=== PATIENT | female | born 1990 | race Hispanic/Latino ===

== ENCOUNTER 2018-11-22 00:29 | Emergency (ER) | payer OTHER, SELFPAY ==
--- OUTSIDE RECORDS SUMMARY | 2018-11-22 00:30 | XMS REPORT ---
:1990 Author Organization [facility] Address [address] [place] [address] Dr. Esquivel [address] [place] [id number] Care Team Providers Name Role Phone Unavailable Unavailable Unavailable Problems This patient has no known problems. Allergies, Adverse Reactions, Alerts This patient has no known allergies or adverse reactions. Medications This patient has no known medications.
--- NOTE | 2018-11-22 02:46 | EDPHYS ---
Physician Documentation [facility] Name: Bia Alvarez Age: 28 yrs Sex: Female : 1990 Arrival Date: 11/22/2018 Time: 00:30 Bed 11 Private MD: ED Physician Artem Austin HPI: 11/22 08:46 This 28 yrs old Female presents to ER via Ambulatory with complaints of Rash, wa Swollen Feet. 08:46 The patient's rash thought to be caused by an unknown cause. The rash is located on the wa back of both hands and lower lateral R leg. The rash can be described as erythematous. Onset: The symptoms/episode began/occurred just prior to arrival. Associated signs and symptoms: Pertinent positives: Pain burning, Pertinent negatives: difficulty breathing, itching, swelling of lips, swelling of throat, swelling of tongue, wheezing. Severity of symptoms: At their worst the symptoms were moderate in the emergency department the symptoms are unchanged. Treatment given at home: none. The patient has not experienced similar symptoms in the past. The patient has not recently seen a physician. 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 - Social history:: Smoking status: Patient/guardian denies using tobacco. - Ebola Screening: : Patient negative for fever greater than or equal to 101.5 degrees Fahrenheit, and additional compatible Ebola Virus Disease symptoms. - Family history:: not pertinent. - Hospitalizations: : No recent hospitalization is reported. ROS: 08:48 Constitutional: Negative for fever, chills, and weight loss, Eyes: Negative for injury, wa pain, redness, and discharge, ENT: Negative for injury, pain, and discharge, Neck: Negative for injury, pain, and swelling, Cardiovascular: Negative for chest pain, palpitations, and edema, Respiratory: Negative for shortness of breath, cough, wheezing, and pleuritic chest pain, Abdomen/GI: Negative for abdominal pain, nausea, vomiting, diarrhea, and constipation, Back: Negative for injury and pain, : Negative for injury, bleeding, discharge, and swelling, MS/Extremity: Negative for injury and deformity, Neuro: Negative for headache, weakness, numbness, tingling, and seizure, Psych: Negative for depression, anxiety, suicide ideation, homicidal ideation, and hallucinations. 08:48 Skin: Positive for erythema, rash, of the right hand and left hand, R lower leg. Exam: 08:49 Constitutional: This is a well developed, well nourished patient who is awake, alert, wa and in no acute distress. Head/Face: Normocephalic, atraumatic. Eyes: Pupils equal round and reactive to light, extra-ocular motions intact. Lids and lashes normal. Conjunctiva and sclera are non-icteric and not injected. Cornea within normal limits. Periorbital areas with no swelling, redness, or edema. ENT: Nares patent. No nasal discharge, no septal abnormalities noted. Tympanic membranes are normal and external auditory canals are clear. Oropharynx with no redness, swelling, or masses, exudates, or evidence of obstruction, uvula midline. Mucous membranes moist. Neck: Trachea midline, no thyromegaly or masses palpated, and no cervical lymphadenopathy. Supple, full range of motion without nuchal rigidity, or vertebral point tenderness. No Meningismus. Chest/axilla: Normal chest wall appearance and motion. Nontender with no deformity. No lesions are appreciated. Cardiovascular: Regular rate and rhythm with a normal S1 and S2. No gallops, murmurs, or rubs. Normal PMI, no JVD. No pulse deficits. Respiratory: Lungs have equal breath sounds bilaterally, clear to auscultation and percussion. No rales, rhonchi or wheezes noted. No increased work of breathing, no retractions or nasal flaring. Abdomen/GI: Soft, non-tender, with normal bowel sounds. No distension or tympany. No guarding or rebound. No evidence of tenderness throughout. Back: No spinal tenderness. No costovertebral tenderness. Full range of motion. Neuro: Awake and alert, GCS 15, oriented to person, place, time, and situation. Cranial nerves II-XII grossly intact. Motor strength 5/5 in all extremities. Sensory grossly intact. Cerebellar exam normal. Normal gait. 08:49 Musculoskeletal/extremity: Extremities: grossly normal except: noted in the right hand and left hand, R lateral lower leg: erythema, pain. 08:51 Skin: cellulitis, on the right leg and left hand and right hand. ne Vital Signs: 00:40 BP 107 / 89; Pulse 66; Resp 16 S; Temp 97.3(TE); Pulse Ox 100% on R/A; Weight 105.23 kg jd3 (R); Height 5 ft. 3 in. (160.02 cm) (R); Pain 0/10; 00:40 Body Mass Index 41.10 (105.23 kg, 160.02 cm) jd3 MDM: 01:57 Patient medically screened. ne 08:50 Differential diagnosis: allergic reaction, cellulitis?. Data reviewed: vital signs, ne nurses notes. 08:50 Response to treatment: the patient's symptoms have mildly improved after treatment. ED wa course: received prednisone and first dose of keflex in ED. Administered Medications: 03:11 Drug: predniSONE 60 mg Route: PO; fu 03:12 Follow up: Response: No adverse reaction 03:21 CANCELLED (Pt already left, will fill script): KeFLEX 500 mg PO once fc Disposition: 11/22/18 02:46 Discharged to Home. Impression: Cellulitis of the Hands and Right Leg. - Condition is Stable. - Discharge Instructions: Cellulitis, Adult, [id number]. - Prescriptions for Keflex 500 mg Oral Capsule - take 1 capsule by ORAL route every 8 hours for 7 days; 21 capsule. - Medication Reconciliation Form, Thank You Letter, Antibiotic Education, Prescription Opioid Use form. - Follow up: Private Physician; When: 2 - 3 days; Reason: Recheck today's complaints. - Problem is new. - Symptoms are unchanged. - Notes: taeke medication as prescribed. follow up with your doctor within 2 days for further evaluation Signatures: Artem Austin MD MD wa Davies, Jonathon, RN RN jJaime Yao RN RN fu Chretien, Felicia RN fc Corrections: (The following items were deleted from the chart) 03:21 03:15 KeFLEX 500 mg PO once ordered. ne fc 03:24 02:46 11/22/2018 02:46 Discharged to Home. Impression: Cellulitis of the Hands and fu Right Leg. Condition is Stable. Forms are Medication Reconciliation Form, Thank You Letter, Antibiotic Education, Prescription Opioid Use. Follow up: Private Physician; When: 2 - 3 days; Reason: Recheck today's complaints. Problem is new. Symptoms are unchanged. wa
--- NOTE | 2018-11-22 02:46 | ER ---
Nurse's Notes [facility] Name: Bia Alvarez Age: 28 yrs Sex: Female : 1990 Arrival Date: 11/22/2018 Time: 00:30 Bed 11 Private MD: Diagnosis: Cellulitis of the Hands and Right Leg Presentation: 11/22 00:37 Presenting complaint: Patient states: "I took a shower and I noticed a rash on my right jd3 leg and my feet are swelling.'. Transition of care: patient was not received from another setting of care. Onset of symptoms was November 22, 2018. Risk Assessment: Do you want to hurt yourself or someone else? Patient reports no desire to harm self or others. Initial Sepsis Screen: Does the patient meet any 2 criteria? No. Patient's initial sepsis screen is negative. Does the patient have a suspected source of infection? No. Patient's initial sepsis screen is negative. Care prior to arrival: None. 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 - Social history:: Smoking status: Patient/guardian denies using tobacco. - Ebola Screening: : Patient negative for fever greater than or equal to 101.5 degrees Fahrenheit, and additional compatible Ebola Virus Disease symptoms. - Family history:: not pertinent. - Hospitalizations: : No recent hospitalization is reported. Screenin:00 Abuse screen: Denies threats or abuse. fu Assessment: 01:40 General: Appears uncomfortable, obese, Behavior is calm, cooperative, appropriate for fu age, Denies fever, chills. Pain: Complains of pain in right hand and left hand Pain does not radiate. Pain currently is 5 out of 10 on a pain scale. Neuro: Level of Consciousness is awake, alert, obeys commands. Cardiovascular: Capillary refill < 3 seconds. Cardiovascular: Respiratory: Breath sounds are clear bilaterally. : Reports blood in urine, patient had delivery by a week ago. Derm: Skin is redness noted to both hands, right hicks, and neck. edema to both legs and feet noted. Musculoskeletal: No deficits noted. Vital Signs: 00:40 BP 107 / 89; Pulse 66; Resp 16 S; Temp 97.3(TE); Pulse Ox 100% on R/A; Weight 105.23 kg jd3 (R); Height 5 ft. 3 in. (160.02 cm) (R); Pain 0/10; 00:40 Body Mass Index 41.10 (105.23 kg, 160.02 cm) jd3 ED Course: 00:30 Patient arrived in ED. am2 00:38 Triage completed. jd3 00:41 Arm band placed on Patient notified of wait time. jd3 01:36 Jaime Taylor, RN is Primary Nurse. fu 01:57 Artem Austin MD is Attending Physician. wa 02:00 Patient has correct armband on for positive identification. Side rails up X 1. fu 02:24 ED physician talking to the patient. fu 03:00 No provider procedures requiring assistance completed. Patient did not have IV access fu during this emergency room visit. Administered Medications: 03:11 Drug: predniSONE 60 mg Route: PO; fu 03:12 Follow up: Response: No adverse reaction fu 03:21 CANCELLED (Pt already left, will fill script): KeFLEX 500 mg PO once fc Outcome: 02:46 Discharge ordered by . wa 03:13 Condition: stable fu 03:13 Discharge instructions given to patient, Instructed on discharge instructions, follow up and referral plans. Demonstrated understanding of instructions, follow-up care, medications, Prescriptions given X 1. 03:24 Patient left the ED. fu Signatures: Jessica Lopez am2 Artem Austin MD MD nv Roger Lawrenec RN RN j Jaime Taylor RN RN Justine Zimmerman RN
[2018-11-22] MEDS ORDERED: predniSONE 20 MG TAB ONE (03:21)
[2018-11-22] MEDS ORDERED: CEPHALEXIN 250 MG CAP ONE (03:31)
== END 2018-11-22 03:24 | disposition home or self-care (01) ==
LOC: ER 00:29
DX: L03.114 Cellulitis of left upper limb (principal); L03.113 Cellulitis of right upper limb; L03.115 Cellulitis of right lower limb
CPT/HCPCS: 99283; J7512

== ENCOUNTER 2018-12-10 17:29 | Emergency (ER) | payer OTHER ==
--- OUTSIDE RECORDS SUMMARY | 2018-12-10 17:30 | XMS REPORT ---
:1990 [facility] Address [address] [place] [address] Dr. Esquivel [address] [place] [address] Care Team Providers Name Role Phone Unavailable Unavailable Unavailable Problems This patient has no known problems. Allergies, Adverse Reactions, Alerts This patient has no known allergies or adverse reactions. Medications This patient has no known medications.
[2018-12-10] MEDS ORDERED: LIDOCAINE 1% MPF 5 ML VIAL ONE (18:23)
--- NOTE | 2018-12-10 18:53 | EDPHYS ---
Physician Documentation [facility] Name: Bia Alvarez Age: 28 yrs Sex: Female : 1990 Arrival Date: 12/10/2018 Time: 17:30 Bed 23 Private MD: ED Physician Artem Austin HPI: 12/10 18:45 This 28 yrs old Female presents to ER via Ambulatory with complaints of I have wa a bump on my incision. 18:45 The patient presents with an abscess of the suprapubic area. Description: The affected wa area is small, localized, erythematous, fluctuant, swollen. Onset: The symptoms/episode began/occurred 2 day(s) ago. Possible cause(s): unknown. Associated signs and symptoms: The patient has no apparent associated signs or symptoms. Modifying factors: the symptoms are alleviated by nothing, the symptoms are aggravated by pressure, squeezing the lesion and expressing the contents, touching. Severity of symptoms: At their worst the symptoms were moderate, in the emergency department the symptoms are unchanged. The patient has not experienced similar symptoms in the past. The patient has not recently seen a physician. had a 1 month ago. believes the bump may be on the location of the scar. 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 - Social history:: Smoking status: Patient/guardian denies using tobacco. - Ebola Screening: : No symptoms or risks identified at this time. - Family history:: not pertinent. - Hospitalizations: : No recent hospitalization is reported. ROS: 18:47 Constitutional: Negative for fever, chills, and weight loss, Eyes: Negative for injury, wa pain, redness, and discharge, ENT: Negative for injury, pain, and discharge, Neck: Negative for injury, pain, and swelling, Cardiovascular: Negative for chest pain, palpitations, and edema, Respiratory: Negative for shortness of breath, cough, wheezing, and pleuritic chest pain, Abdomen/GI: Negative for abdominal pain, nausea, vomiting, diarrhea, and constipation, Back: Negative for injury and pain, : Negative for injury, bleeding, discharge, and swelling, MS/Extremity: Negative for injury and deformity, Neuro: Negative for headache, weakness, numbness, tingling, and seizure, Psych: Negative for depression, anxiety, suicide ideation, homicidal ideation, and hallucinations. 18:47 Skin: Positive for abscess, cellulitis, of the suprapubic area. 18:47 All other systems are negative. 18:55 Skin: Negative for hematoma. wa Exam: 18:47 Constitutional: This is a well developed, well nourished patient who is awake, alert, wa and in no acute distress. Head/Face: Normocephalic, atraumatic. Eyes: Pupils equal round and reactive to light, extra-ocular motions intact. Lids and lashes normal. Conjunctiva and sclera are non-icteric and not injected. Cornea within normal limits. Periorbital areas with no swelling, redness, or edema. ENT: Nares patent. No nasal discharge, no septal abnormalities noted. Tympanic membranes are normal and external auditory canals are clear. Oropharynx with no redness, swelling, or masses, exudates, or evidence of obstruction, uvula midline. Mucous membranes moist. Neck: Trachea midline, no thyromegaly or masses palpated, and no cervical lymphadenopathy. Supple, full range of motion without nuchal rigidity, or vertebral point tenderness. No Meningismus. Chest/axilla: Normal chest wall appearance and motion. Nontender with no deformity. No lesions are appreciated. Cardiovascular: Regular rate and rhythm with a normal S1 and S2. No gallops, murmurs, or rubs. Normal PMI, no JVD. No pulse deficits. Respiratory: Lungs have equal breath sounds bilaterally, clear to auscultation and percussion. No rales, rhonchi or wheezes noted. No increased work of breathing, no retractions or nasal flaring. Abdomen/GI: Soft, non-tender, with normal bowel sounds. No distension or tympany. No guarding or rebound. No evidence of tenderness throughout. Back: No spinal tenderness. No costovertebral tenderness. Full range of motion. MS/ Extremity: Pulses equal, no cyanosis. Neurovascular intact. Full, normal range of motion. Neuro: Awake and alert, GCS 15, oriented to person, place, time, and situation. Cranial nerves II-XII grossly intact. Motor strength 5/5 in all extremities. Sensory grossly intact. Cerebellar exam normal. Normal gait. Psych: Awake, alert, with orientation to person, place and time. Behavior, mood, and affect are within normal limits. 18:56 Skin: abscess, that is small, approximately 2 cm(s), of the suprapubic area. nj Vital Signs: 17:32 BP 109 / 70; Pulse 83; Resp 16 S; Pulse Ox 100% on R/A; Weight 100.24 kg (R); Height 5 aa5 ft. 3 in. (160.02 cm) (R); Pain 4/10; 17:33 Temp 98.3(O); bd 17:32 Body Mass Index 39.15 (100.24 kg, 160.02 cm) aa5 Procedures: 18:50 I \T\ D: Incision and drainage was performed for an abscess of the suprapubic area wa Prepped with Betadine, Anesthetized with 2 ml's 1% Lidocaine. Incised with #11 blade. Drained small amount purulent fluid. Dressing: sterile 4x4 gauze, the patient tolerated the procedure well. MDM: 17:36 Patient medically screened. wa 18:50 Differential diagnosis: abscess, cellulitis. Data reviewed: vital signs, nurses notes. nj Administered Medications: No medications were administered Disposition: 12/10/18 18:52 Discharged to Home. Impression: Acute cutaneous abscess (pubis). - Condition is Stable. - Discharge Instructions: Skin Abscess, [id number]. - Prescriptions for Keflex 500 mg Oral Capsule - take 1 capsule by ORAL route every 8 hours for 7 days; 21 capsule. Bactrim DS 800- 160 mg Oral Tablet - take 1 tablet by ORAL route every 12 hours for 7 days; 14 tablet. - Medication Reconciliation Form, Thank You Letter, Antibiotic Education, Prescription Opioid Use form. - Follow up: Private Physician; When: 2 - 3 days; Reason: Recheck today's complaints. - Problem is new. - Symptoms have improved. - Notes: take antibiotics as prescribed. follow up with your doctor for wound check within 48 hours Signatures: Renee Moses RN RN aa5 Artem Austin MD MD nj Haja Strong RN RN rv Corrections: (The following items were deleted from the chart) 19:07 18:52 12/10/2018 18:52 Discharged to Home. Impression: Acute cutaneous abscess (pubis). rv Condition is Stable. Forms are Medication Reconciliation Form, Thank You Letter, Antibiotic Education, Prescription Opioid Use. Follow up: Private Physician; When: 2 - 3 days; Reason: Recheck today's complaints. Problem is new. Symptoms have improved. wa
--- NOTE | 2018-12-10 18:53 | ER ---
Nurse's Notes [facility] Name: Bia Alvarez Age: 28 yrs Sex: Female : 1990 Arrival Date: 12/10/2018 Time: 17:30 Bed 23 Private MD: Diagnosis: Acute cutaneous abscess (pubis) Presentation: 12/10 17:30 Presenting complaint: Patient states: "I have a bump under my and I think aa5 it's an abscess". Pt reports having on 11/13/18. 17:30 Transition of care: patient was not received from another setting of care. Onset of aa5 symptoms was November 2018. Risk Assessment: Do you want to hurt yourself or someone else? Patient reports no desire to harm self or others. Initial Sepsis Screen: Does the patient meet any 2 criteria? No. Patient's initial sepsis screen is negative. Does the patient have a suspected source of infection? No. Patient's initial sepsis screen is negative. Care prior to arrival: None. 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 - Social history:: Smoking status: Patient/guardian denies using tobacco. - Ebola Screening: : No symptoms or risks identified at this time. - Family history:: not pertinent. - Hospitalizations: : No recent hospitalization is reported. Screenin:25 Abuse screen: Denies threats or abuse. Denies injuries from another. Nutritional rv screening: No deficits noted. Tuberculosis screening: No symptoms or risk factors identified. Fall Risk None identified. Assessment: 18:24 General: Appears in no apparent distress. comfortable, Behavior is calm, cooperative. rv Pain: Complains of pain in POST OP WOUND (). Neuro: Level of Consciousness is awake, alert, obeys commands, Oriented to person, place, time, situation. Cardiovascular: Capillary refill < 3 seconds. Respiratory: Airway is patent. GI: No signs and/or symptoms were reported involving the gastrointestinal system. : No signs and/or symptoms were reported regarding the genitourinary system. EENT: No signs and/or symptoms were reported regarding the EENT system. Derm: Skin is intact. Musculoskeletal: No signs and/or symptoms reported regarding the musculoskeletal system. Vital Signs: 17:32 BP 109 / 70; Pulse 83; Resp 16 S; Pulse Ox 100% on R/A; Weight 100.24 kg (R); Height 5 aa5 ft. 3 in. (160.02 cm) (R); Pain 4/10; 17:33 Temp 98.3(O); bd 17:32 Body Mass Index 39.15 (100.24 kg, 160.02 cm) aa5 ED Course: 17:30 Patient arrived in ED. aa5 17:30 Arm band placed on Patient placed in an exam room, on a stretcher. aa5 17:32 Haja Strong RN is Primary Nurse. rv 17:36 Artem Austin MD is Attending Physician. wa 17:39 Triage completed. aa5 18:25 Patient has correct armband on for positive identification. Bed in low position. Call rv light in reach. Side rails up X 1. Pulse ox on. NIBP on. 18:29 Assist provider with I \\T\\ D: of an abscess on abdominal abscess Set up I\\T\\D tray. mg 2 Performed by Artem Austin MD Wound packed. 4X4s, Dressing with Neosporin and 4X4s, tape Patient tolerated well. Patient did not have IV access during this emergency room visit. Administered Medications: No medications were administered Outcome: 18:52 Discharge ordered by . wa 19:06 Discharged to home ambulatory. rv 19:06 Condition: good 19:06 Discharge instructions given to patient, Instructed on discharge instructions, follow up and referral plans. medication usage, Demonstrated understanding of instructions, follow-up care, medications, Prescriptions given X 2. 19:07 Patient left the ED. rv Signatures: Elizabeth Pepper Audri, RN RN aa Artem Austin MD MD wa Gardose, Michele, RN RN mg2 Haja Strong RN RN rv Corrections: (The following items were deleted from the chart) 17:40 17:30 Presenting complaint: Patient states: "I have a bump under my and I aa5 think it's an abscess" aa5
== END 2018-12-10 19:07 | disposition home or self-care (01) ==
LOC: ER 17:29
PROC: 0J9C0ZZ Drainage of Pelvic Region Subcutaneous Tissue and Fascia, Open Approach (ICD-10-PCS; principal; 2018-12-10)
DX: N73.2 Unspecified parametritis and pelvic cellulitis (principal)
CPT/HCPCS: 99283

== ENCOUNTER 2019-03-06 00:14 | Emergency (ER) | payer OTHER, SELFPAY ==
--- OUTSIDE RECORDS SUMMARY | 2019-03-06 00:16 | XMS REPORT ---
:1990 Author Organization [facility] Address [address] [place] [address] Dr. Esquivel [address] [place] [address] Care Team Providers Name Role Phone Unavailable Unavailable Unavailable Problems This patient has no known problems. Allergies, Adverse Reactions, Alerts This patient has no known allergies or adverse reactions. Medications This patient has no known medications.
[2019-03-06] MEDS ORDERED: LIDOCAINE 1% MPF 5 ML VIAL ONE (00:50)
--- NOTE | 2019-03-06 02:05 | ER ---
Nurse's Notes [facility] Name: Bia Alvarez Age: 28 yrs Sex: Female : 1990 Arrival Date: 03/06/2019 Time: 00:15 Bed 26 Private MD: Diagnosis: Abscess right labia Presentation: 03/06 00:25 Presenting complaint: Patient states: she noticed a bump/swelling in the right groin mg2 for 3 days now. Transition of care: patient was not received from another setting of care. Onset of symptoms was March 03, 2019. Risk Assessment: Do you want to hurt yourself or someone else? Patient reports no desire to harm self or others. Initial Sepsis Screen: Does the patient meet any 2 criteria? No. Patient's initial sepsis screen is negative. Does the patient have a suspected source of infection? No. Patient's initial sepsis screen is negative. Care prior to arrival: None. 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 - Social history:: Smoking status: Patient/guardian denies using tobacco, Patient/guardian denies using alcohol, street drugs, IV drugs. - Ebola Screening: : No symptoms or risks identified at this time. Screenin:32 Abuse screen: Denies threats or abuse. Denies injuries from another. Nutritional mg2 screening: No deficits noted. Tuberculosis screening: No symptoms or risk factors identified. Fall Risk None identified. Assessment: 00:33 General: Appears in no apparent distress. comfortable, Behavior is calm, cooperative. mg2 Pain: Denies pain. Neuro: Level of Consciousness is awake, alert, obeys commands, Oriented to person, place, time, situation. Cardiovascular: Capillary refill < 3 seconds Patient's skin is warm and dry. Respiratory: Airway is patent Respiratory effort is even, unlabored, Respiratory pattern is regular, symmetrical. GI: No signs and/or symptoms were reported involving the gastrointestinal system. : No signs and/or symptoms were reported regarding the genitourinary system. EENT: No signs and/or symptoms were reported regarding the EENT system. Derm: Abscess located on right groin is nickel sized. Musculoskeletal: No signs and/or symptoms reported regarding the musculoskeletal system. Vital Signs: 00:28 BP 96 / 80; Pulse 77; Resp 18; Temp 98.7; Pulse Ox 100% on R/A; Weight 99.79 kg; Height mg2 5 ft. 3 in. (160.02 cm); Pain 0/10; 01:44 BP 99 / 56; Pulse 76; Resp 18; Pulse Ox 100% on R/A; mg2 00:28 Body Mass Index 38.97 (99.79 kg, 160.02 cm) mg2 ED Course: 00:15 Patient arrived in ED. am2 00:18 Andrés Carbajal MD is Attending Physician. pkl 00:21 Burak Moreno, RUDDY is Primary Nurse. mg2 00:23 Andrés Carbajal MD is Attending Physician. pkl 00:28 Triage completed. mg2 00:30 Arm band placed on. mg2 00:34 Patient has correct armband on for positive identification. Door closed. Warm blanket mg2 given. 02:26 Assist provider with I \T\ D: of an abscess on right groin Set up I\T\D tray. Performed by mg 2 Andrés Carbajal MD Culture sent to lab. Wound packed. iodoform gauze, Dressing with 4X4s, Patient tolerated well. Patient did not have IV access during this emergency room visit. Administered Medications: 02:00 Drug: Lidocaine (2 %) 1 mg Route: Infiltration; mg2 Outcome: 02:04 Discharge ordered by . pkl 02:28 Discharged to home ambulatory. mg2 02:28 Condition: stable 02:28 Discharge instructions given to patient, Instructed on discharge instructions, follow up and referral plans. medication usage, Demonstrated understanding of instructions, follow-up care, medications, Prescriptions given X 1. 02:31 Patient left the ED. mg2 Signatures: Andrés Carbajal MD MD pkl Moreno, Amanda am2 Burak Moreno, RN RN mg2 Corrections: (The following items were deleted from the chart) 00:31 00:28 lmp unknown, post c/s 4 months ago mg2 mg2
--- NOTE | 2019-03-06 02:05 | EDPHYS ---
Physician Documentation [facility] Name: Bia Alvarez Age: 28 yrs Sex: Female : 1990 Arrival Date: 03/06/2019 Time: 00:15 Bed 26 Private MD: ED Physician Andrés Carbajal HPI: 03/06 00:30 This 28 yrs old Female presents to ER via Ambulatory with complaints of bump pkl on vagina. 00:30 The patient presents with an abscess of the right labia. Description: The affected area pkl is small, approximately 2 cm(s). Onset: The symptoms/episode began/occurred 3 day(s) ago. 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 - Social history:: Smoking status: Patient/guardian denies using tobacco, Patient/guardian denies using alcohol, street drugs, IV drugs. - Ebola Screening: : No symptoms or risks identified at this time. ROS: 00:30 Eyes: Negative for injury, pain, redness, and discharge, ENT: Negative for injury, pkl pain, and discharge, Neck: Negative for injury, pain, and swelling, Cardiovascular: Negative for chest pain, palpitations, and edema, Respiratory: Negative for shortness of breath, cough, wheezing, and pleuritic chest pain, Abdomen/GI: Negative for abdominal pain, nausea, vomiting, diarrhea, and constipation, Back: Negative for injury and pain. 00:30 : Positive for of the right labia, abscess. 00:30 MS/extremity: Negative for acute changes. 00:30 Neuro: Negative for altered mental status. Exam: 00:30 Head/Face: Normocephalic, atraumatic. Eyes: Pupils equal round and reactive to light, pkl extra-ocular motions intact. Lids and lashes normal. Conjunctiva and sclera are non-icteric and not injected. Cornea within normal limits. Periorbital areas with no swelling, redness, or edema. ENT: Nares patent. No nasal discharge, no septal abnormalities noted. Tympanic membranes are normal and external auditory canals are clear. Oropharynx with no redness, swelling, or masses, exudates, or evidence of obstruction, uvula midline. Mucous membranes moist. Neck: Trachea midline, no thyromegaly or masses palpated, and no cervical lymphadenopathy. Supple, full range of motion without nuchal rigidity, or vertebral point tenderness. No Meningismus. Chest/axilla: Normal chest wall appearance and motion. Nontender with no deformity. No lesions are appreciated. Cardiovascular: Regular rate and rhythm with a normal S1 and S2. No gallops, murmurs, or rubs. Normal PMI, no JVD. No pulse deficits. Respiratory: Lungs have equal breath sounds bilaterally, clear to auscultation and percussion. No rales, rhonchi or wheezes noted. No increased work of breathing, no retractions or nasal flaring. Abdomen/GI: Soft, non-tender, with normal bowel sounds. No distension or tympany. No guarding or rebound. No evidence of tenderness throughout. Back: No spinal tenderness. No costovertebral tenderness. Full range of motion. Neuro: Awake and alert, GCS 15, oriented to person, place, time, and situation. Cranial nerves II-XII grossly intact. Motor strength 5/5 in all extremities. Sensory grossly intact. Cerebellar exam normal. Normal gait. 00:30 Skin: abscess, that is small, approximately 2 cm(s), of the right labia. Vital Signs: 00:28 BP 96 / 80; Pulse 77; Resp 18; Temp 98.7; Pulse Ox 100% on R/A; Weight 99.79 kg; Height mg2 5 ft. 3 in. (160.02 cm); Pain 0/10; 01:44 BP 99 / 56; Pulse 76; Resp 18; Pulse Ox 100% on R/A; mg2 00:28 Body Mass Index 38.97 (99.79 kg, 160.02 cm) mg2 Procedures: 02:02 I \T\ D: Incision and drainage was performed for an abscess of the right labia. pkl MDM: 00:23 Patient medically screened. pkl 02:02 Data reviewed: vital signs, nurses notes. pkl 03/06 00:43 Order name: Glucose, Ancillary Testing; Complete Time: 02:00 EDMS 03/06 00:52 Order name: Glucose, Ancillary Testing EDMS 03/06 00:53 Order name: Urine Dipstick--Ancillary (enter results) mw2 03/06 00:53 Order name: Urine --Ancillary (enter results) mw2 03/06 02:28 Order name: Wound Culture mg2 03/06 00:48 Order name: Dressing - Wound; Complete Time: 00:48 ca1 03/06 00:48 Order name: Gloves, Sterile; Complete Time: 00:48 ca1 03/06 00:48 Order name: I\T\D Setup; Complete Time: 00:48 ca1 03/06 00:48 Order name: Scalpel; Complete Time: 00:48 ca1 Administered Medications: 02:00 Drug: Lidocaine (2 %) 1 mg Route: Infiltration; mg2 Disposition: 03/06/19 02:04 Discharged to Home. Impression: Abscess right labia. - Condition is Stable. - Prescriptions for Doxycycline Hyclate 100 mg Oral Tablet - take 1 tablet by ORAL route every 12 hours; 14 tablet. - Medication Reconciliation Form, Thank You Letter, Antibiotic Education, Prescription Opioid Use form. - Follow up: Private Physician; When: 1 - 2 days; Reason: Re-evaluation by your physician. - Problem is new. - Symptoms have improved. Signatures: Dispatcher [employer] [facility] Andrés Carbajal MD MD pkl Burak Moreno RN RN mg2 Mireille Billy RN RN ca1 Corrections: (The following items were deleted from the chart) 02:31 02:04 03/06/2019 02:04 Discharged to Home. Impression: Abscess right labia. Condition mg2 is Stable. Forms are Medication Reconciliation Form, Thank You Letter, Antibiotic Education, Prescription Opioid Use. Follow up: Private Physician; When: 1 - 2 days; Reason: Re-evaluation by your physician. Problem is new. Symptoms have improved. pkl
[2019-03-06 04:55] LABS: Urine Blood NEGATIVE (NEG); Urine Glucose NEGATIVE (NEG); Urine Protein TRACE (NEG); Urine Specific Gravity >1.030 (1.005-1.030); Urine pH 5.5 (5.0-7.0)
== END 2019-03-06 02:31 | disposition home or self-care (01) ==
LOC: ER 00:14
PROC: 0U9M0ZZ Drainage of Vulva, Open Approach (ICD-10-PCS; principal; 2019-03-06)
DX: N76.4 Abscess of vulva (principal)
CPT/HCPCS: 81003; 81025; 82962; 87070; 87205; 99284

== ENCOUNTER 2019-03-10 17:41 | Emergency (ER) | payer SELFPAY ==
--- OUTSIDE RECORDS SUMMARY | 2019-03-10 17:44 | XMS REPORT ---
:1990 [facility] Address [address] [place] [address] Dr. Esquivel [address] [place] [id number] Care Team Providers Name Role Phone Unavailable Unavailable Unavailable Problems This patient has no known problems. Allergies, Adverse Reactions, Alerts This patient has no known allergies or adverse reactions. Medications This patient has no known medications.
[2019-03-10 18:30] LABS: Urine Blood NEGATIVE (NEG); Urine Glucose NEGATIVE (NEG); Urine Protein 1+ (NEG); Urine Specific Gravity >1.030 (1.005-1.030)
[2019-03-10 18:31] LABS: Urine Bacteria <20 /HPF (<20); Urine Culture Reflex Order NOT NEEDED; Urine Mucus 2+ /HPF (NONE SEEN); Urine RBC NONE SEEN /HPF (NONE SEEN)
--- NOTE | 2019-03-10 18:45 | EDPHYS ---
Physician Documentation [facility] Name: Bia Alvarez Age: 28 yrs Sex: Female : 1990 Arrival Date: 03/10/2019 Time: 17:43 Bed 5 Private MD: ED Physician Ciaran Tovar HPI: 03/10 18:58 This 28 yrs old Female presents to ER via Ambulatory with complaints of kb Abdominal Pain, Vaginal Pain. 18:59 The patient presents with urinary symptoms, dysuria. Onset: The symptoms/episode kb began/occurred yesterday. Modifying factors: The symptoms are alleviated by nothing, the symptoms are aggravated by urinating. Associated signs and symptoms: Pertinent positives: dysuria. Severity of symptoms: At their worst the symptoms were mild, in the emergency department the symptoms are unchanged. The patient has not experienced similar symptoms in the past. The patient has not recently seen a physician. Pt reports pain with urination. States she was treated for a UTI, but is having the same symptoms. States she started taking AZO today and it turned her urine orange so she came in to make sure everything was ok because that has never happened before. . 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 - Social history:: Smoking status: Patient/guardian denies using tobacco. - Ebola Screening: : No symptoms or risks identified at this time. ROS: 18:58 Constitutional: Negative for fever, chills, and weight loss, Neck: Negative for injury, kb pain, and swelling, Cardiovascular: Negative for chest pain, palpitations, and edema, Respiratory: Negative for shortness of breath, cough, wheezing, and pleuritic chest pain, Abdomen/GI: Negative for abdominal pain, nausea, vomiting, diarrhea, and constipation, MS/Extremity: Negative for injury and deformity, Skin: Negative for injury, rash, and discoloration, Neuro: Negative for headache, weakness, numbness, tingling, and seizure. 18:58 : Positive for urinary symptoms, burning with urination. Exam: 18:58 Constitutional: This is a well developed, well nourished patient who is awake, alert, kb and in no acute distress. Head/Face: Normocephalic, atraumatic. Neck: Trachea midline, no thyromegaly or masses palpated, and no cervical lymphadenopathy. Supple, full range of motion without nuchal rigidity, or vertebral point tenderness. No Meningismus. Chest/axilla: Normal chest wall appearance and motion. Nontender with no deformity. No lesions are appreciated. Cardiovascular: Regular rate and rhythm with a normal S1 and S2. No gallops, murmurs, or rubs. Normal PMI, no JVD. No pulse deficits. Respiratory: Lungs have equal breath sounds bilaterally, clear to auscultation and percussion. No rales, rhonchi or wheezes noted. No increased work of breathing, no retractions or nasal flaring. Abdomen/GI: Soft, non-tender, with normal bowel sounds. No distension or tympany. No guarding or rebound. No evidence of tenderness throughout. Back: No spinal tenderness. No costovertebral tenderness. Full range of motion. Skin: Warm, dry with normal turgor. Normal color with no rashes, no lesions, and no evidence of cellulitis. MS/ Extremity: Pulses equal, no cyanosis. Neurovascular intact. Full, normal range of motion. Neuro: Awake and alert, GCS 15, oriented to person, place, time, and situation. Cranial nerves II-XII grossly intact. Motor strength 5/5 in all extremities. Sensory grossly intact. Cerebellar exam normal. Normal gait. Vital Signs: 17:48 BP 120 / 71; Pulse 95; Resp 16; Temp 97.1; Pulse Ox 98% on R/A; Weight 99.79 kg; Height la1 5 ft. 3 in. (160.02 cm); 19:15 BP 120 / 60; Pulse 80; Resp 18; Pulse Ox 99% ; ea 17:48 Body Mass Index 38.97 (99.79 kg, 160.02 cm) la1 MDM: 17:47 Patient medically screened. kb 18:17 Data reviewed: vital signs, nurses notes. Data interpreted: Pulse oximetry: on room air kb is 98 %. Interpretation: normal. Counseling: I had a detailed discussion with the patient and/or guardian regarding: the historical points, exam findings, and any diagnostic results supporting the discharge/admit diagnosis, lab results, the need for outpatient follow up, a family practitioner, to return to the emergency department if symptoms worsen or persist or if there are any questions or concerns that arise at home. 03/10 18:05 Order name: Urine Microscopic Only; Complete Time: 18:37 dh3 03/10 18:06 Order name: Urine Dipstick--Ancillary (enter results); Complete Time: 18:37 ms Administered Medications: No medications were administered Disposition: 03/10/19 18:44 Discharged to Home. Impression: Dysuria. - Condition is Stable. - Discharge Instructions: Dysuria. - Medication Reconciliation Form, Thank You Letter, Antibiotic Education, Prescription Opioid Use form. - Follow up: Emergency Department; When: As needed; Reason: Worsening of condition. Follow up: Private Physician; When: 2 - 3 days; Reason: Recheck today's complaints, Continuance of care, Re-evaluation by your physician. Signatures: Dispatcher [employer] EDMS Adalgisa Vazquez, Jadiel Warren RN RN laRadha Sevilla RN RN ea Corrections: (The following items were deleted from the chart) 19:19 18:45 03/10/2019 18:44 Discharged to Home. Impression: Dysuria. Condition is Stable. ea Forms are Medication Reconciliation Form, Thank You Letter, Antibiotic Education, Prescription Opioid Use. Follow up: Emergency Department; When: As needed; Reason: Worsening of condition. Follow up: Private Physician; When: 2 - 3 days; Reason: Recheck today's complaints, Continuance of care, Re-evaluation by your physician. kb
--- NOTE | 2019-03-10 18:45 | ER ---
Nurse's Notes [facility] Name: Bia Alvarez Age: 28 yrs Sex: Female : 1990 Arrival Date: 03/10/2019 Time: 17:43 Bed 5 Private MD: Diagnosis: Dysuria Presentation: 03/10 17:47 Presenting complaint: Patient states: intermittent lower abd pain. Transition of care: la1 patient was not received from another setting of care. Onset of symptoms was March 10, 2019. Risk Assessment: Do you want to hurt yourself or someone else? Patient reports no desire to harm self or others. Initial Sepsis Screen: Does the patient meet any 2 criteria? No. Patient's initial sepsis screen is negative. Does the patient have a suspected source of infection? No. Patient's initial sepsis screen is negative. Care prior to arrival: None. 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 - Social history:: Smoking status: Patient/guardian denies using tobacco. - Ebola Screening: : No symptoms or risks identified at this time. Screenin:13 Abuse screen: Denies threats or abuse. Denies injuries from another. Nutritional aj1 screening: No deficits noted. Tuberculosis screening: No symptoms or risk factors identified. Assessment: 18:13 General: Appears in no apparent distress. comfortable, Behavior is calm, cooperative, aj1 agitated. Pain: Complains of pain in suprapubic area and right lower quadrant. Neuro: Level of Consciousness is awake, alert, obeys commands, Oriented to person, place, time, situation. Cardiovascular: Patient's skin is warm and dry. Respiratory: Airway is patent Respiratory effort is even, unlabored, Respiratory pattern is regular, symmetrical. GI: Abdomen is non-distended, Bowel sounds present X 4 quads. Abd is soft X 4 quads. : Reports recent UTI. EENT: No signs and/or symptoms were reported regarding the EENT system. Derm: No signs and/or symptoms reported regarding the dermatologic system. Skin is pink, warm \T\ dry. normal. Musculoskeletal: No signs and/or symptoms reported regarding the musculoskeletal system. Circulation, motion, and sensation intact. 19:17 Reassessment: Patient and/or family updated on plan of care and expected duration. Pain ea level reassessed. Patient is alert, oriented x 3, equal unlabored respirations, skin warm/dry/pink. Discharge instruction given to patient, verbalized the understanding of instruction. Pt left ED ambulatory, without assistance. Pt tolerating well. Vital Signs: 17:48 BP 120 / 71; Pulse 95; Resp 16; Temp 97.1; Pulse Ox 98% on R/A; Weight 99.79 kg; Height la1 5 ft. 3 in. (160.02 cm); 19:15 BP 120 / 60; Pulse 80; Resp 18; Pulse Ox 99% ; ea 17:48 Body Mass Index 38.97 (99.79 kg, 160.02 cm) la1 ED Course: 17:43 Patient arrived in ED. mr 17:47 Adalgisa Vazquez FNP-C is [facility]. kb 17:47 Ciaran Tovar MD is Attending Physician. kb 17:48 Triage completed. la1 17:49 Arm band placed on right wrist. la1 17:52 Hyacinth Nettles, RN is Primary Nurse. aj1 18:05 Urine collected: clean catch specimen, clear. dh3 18:13 Patient has correct armband on for positive identification. Bed in low position. Call aj1 light in reach. Side rails up X 1. 18:13 No provider procedures requiring assistance completed. aj1 19:19 Patient did not have IV access during this emergency room visit. ea Administered Medications: No medications were administered Outcome: 18:44 Discharge ordered by . kb 19:18 Discharged to home ambulatory. ea 19:18 Condition: stable 19:18 Discharge instructions given to patient, Instructed on discharge instructions, follow up and referral plans. 19:19 Patient left the ED. ea Signatures: Adalgisa Vazquez FNP-C FNP-Hyacinth Feldman, RN RN aj1 Gabriela SchwartzJadiel taylor RN RN la1 Romi Allred 3 Radha Shipley RN RN ea
== END 2019-03-10 19:19 | disposition home or self-care (01) ==
LOC: ER 17:41
DX: R30.0 Dysuria (principal)
CPT/HCPCS: 81003; 81015; 99283